=== PATIENT | male | born 1960 | race Two or more races ===

== ENCOUNTER 2021-08-15 11:20 | Inpatient (IN) | payer MEDICARE, OTHER ==
[~2021-08-15] VITALS: Ht 177.8 cm; Wt 93.2 kg
[2021-08-15] MEDS ORDERED: FUROSEMIDE 40 MG/4 ML VIAL IV ONE ×2 (11:30→16:30)
[2021-08-15] MEDS ORDERED: CLINDAMYCIN 600MG IV 50 ML IV ONE ×2 (11:30→16:30)
[2021-08-15 12:14] LABS: Basophils # (auto) 0.1 10 ^3/uL (0-0.2); Basophils % (auto) 0.8 % (0.0-2.0); Eosinophils # (auto) 0.1 10 ^3/uL (0-0.8); Eosinophils % (auto) 1.7 % (0.0-7.0); Hematocrit 34.2 % (41.0-53.0); Hemoglobin 11.4 g/dL (13.5-17.5); Lymphocytes # (auto) 0.8 10 ^3/uL (0.4-5.4); Lymphocytes % (auto) 12.6 % (10.0-50.0); Mean Corpuscular Hemoglobin 31.2 pg (28.0-32.0); Mean Corpuscular Hgb Conc. 33.4 g/dL (32.0-36.0); Mean Corpuscular Volume 93.4 fL (80.0-100.0); Monocytes # (auto) 0.8 10 ^3/uL (0-1.3); Monocytes % (auto) 12.3 % (0.0-12.0); Neutrophils # (auto) 4.9 10 ^3/uL (1.6-8.6); Neutrophils % (auto) 72.6 % (37.0-80.0); Red Blood Cells 3.67 10^6/uL (4.5-5.90); Red Cell Distribution Width 18.3 % (11.8-14.3); White Blood Cell 6.7 10^3/uL (4.4-10.8)
[2021-08-15 12:28] LABS: Chloride 105 mmol/L (98-107); Potassium 3.6 mmol/L (3.5-5.1); Sodium 135 mmol/L (136-145)
[2021-08-15 12:44] LABS: Alanine Aminotransferase 17 U/L (16-61); Alkaline Phosphatase 117 U/L (45-117); Anion Gap 11 (5-15); Aspartate Aminotransferase 19 U/L (15-37); BUN/Creatinine Ratio 22.2; Bilirubin, Total 1.1 mg/dL (0.2-1.0); Blood Urea Nitrogen 30 mg/dL (7-18); Calcium 8.2 mg/dL (8.5-10.1); Carbon Dioxide 19 mmol/L (21-32); GFR African American 69 mL/min; GFR Non-African American 57 mL/min; Glucose 114 mg/dL (74-106); Magnesium 2.5 mg/dL (1.6-2.6); Total Protein 7.9 g/dL (6.4-8.2)
[2021-08-15] MEDS ORDERED: NITROGLYCERIN 0.4 MG SL TAB SL PRN ×2 (15:00→16:30)
[2021-08-15] MEDS ORDERED: MORPHINE SULFATE INJECTION 2 MG/ML SYRG IV PRN ×2 (15:00→16:30)
[2021-08-15] MEDS ORDERED: SACU1TAB PO (16:01)
[2021-08-15] MEDS ORDERED: DICL1GEL50 TOP (16:01)
[2021-08-15] MEDS ORDERED: MELO1TAB56 PO (16:01)
[2021-08-15] MEDS ORDERED: LISI2.5T47 PO (16:01)
[2021-08-15] MEDS ORDERED: FURO40TA4 PO (16:01)
[2021-08-15] MEDS ORDERED: ACETAMINOPHEN 325 MG TAB PO PRN (16:30)
[2021-08-15] MEDS ORDERED: HYDROcodone-ACET 5/325MG TAB PO PRN (16:30)
[2021-08-15] MEDS ORDERED: LORazepam 0.5 MG TAB PO PRN (16:30)
[2021-08-15] MEDS ORDERED: METOCLOPRAMIDE HCL 5MG/ml INJ 2ml VIAL IV PRN (16:30)
[2021-08-15] MEDS ORDERED: ALUM & MAG HYDROX-SIMETH LIQ(MAALOX) 30 ML PO PRN (16:30)
[2021-08-15] MEDS ORDERED: ENOXAPARIN SOD 40 MG/0.4 ML SYRINGE SC ONE (16:30)
[2021-08-15] MEDS ORDERED: SODIUM CHLORIDE 0.9% 1,000 ML IV SCH (16:30)
[2021-08-15] MEDS ORDERED: cefTRIAXone 1GM/50ML D5W 50 ML IV ONE (16:30)
[2021-08-15] MEDS ORDERED: FAMOTIDINE (10MG/ML) 2ML VL IV ONE (16:30)
[2021-08-15] MEDS ORDERED: DOCUSATE SOD 100 MG CAP PO PRN (16:30)
[2021-08-15 16:34] LABS: Urine Bacteria NONE SEEN /hpf (None Seen); Urine Blood Negative /uL (Negative); Urine Specific Gravity 1.021 (1.001-1.035); Urine WBC <1 /hpf (0 - 3)
[2021-08-15] MEDS ORDERED: IPRATROPIUM BROM 0.5 MG/2.5ML INH SOL NEB ONE (16:45)
[2021-08-15 18:08] LABS: Amphetamine Screen, Urine NEGATIVE (NEGATIVE); Barbiturate Scree,Urine NEGATIVE (NEGATIVE); Benzodiazephine Screen, Urine NEGATIVE (NEGATIVE); Cannabinoid Screen, Urine NEGATIVE (NEGATIVE); Cocaine Screen, Urine NEGATIVE (NEGATIVE); Opiate Scree,Urine NEGATIVE (NEGATIVE); Phencyclidine Screen, Urine NEGATIVE (NEGATIVE)
[2021-08-15 18:24] LABS: Cholesterol 119 mg/dL (< 200); Magnesium 2.5 mg/dL (1.6-2.6)
[2021-08-15 18:26] LABS: INR 1.13 (0.9-1.15); Partial Thromboplastin Time 28.3 sec (23.6-33.0)
[2021-08-15 18:29] LABS: HDL Cholesterol 53 mg/dL (40-59); LDL Cholesterol 59 mg/dL (< 100); Phosphorus 2.9 mg/dL (2.5-4.90); Triglycerides 61 mg/dL (< 150)
[2021-08-15] MEDS: MORPHINE SULFATE INJECTION 2 MG/ML SYRG IV PRN (20:34)
[2021-08-15] MEDS ORDERED: IPRATROPIUM BROM 0.5 MG/2.5ML INH SOL NEB PRN (22:00)
[2021-08-15] MEDS ORDERED: IPRATROPIUM BROM 0.5 MG/2.5ML INH SOL NEB SCH (22:00)
[2021-08-15] MEDS: CLINDAMYCIN 600MG IV 50 ML IV SCH (22:30)
[2021-08-15] MEDS: ATORVASTATIN 20 MG TAB PO SCH (22:50)
[2021-08-15] MEDS: POTASSIUM CHL 20 Meq TABLET PO SCH (22:50)
[2021-08-15] MEDS: CARVEDILOL 3.125 MG TAB PO SCH (22:50)
[2021-08-15] MEDS: SACUBITRIL-VALSARTAN 24mg/26mg TAB PO SCH (23:30)
[2021-08-16 01:20] VITALS: BP 110/71
[2021-08-16] MEDS: MORPHINE SULFATE INJECTION 2 MG/ML SYRG IV PRN ×2 (02:13→03:13)
[2021-08-16] MEDS ORDERED: PNEUMOCOCCAL VACC POLYS 25 MCG/0.5 ML VIAL IM ONE (04:15)
[2021-08-16] MEDS ORDERED: INFLUENZA QUAD 2020-2021 0.5 ML SYRG IM ONE (04:15)
[2021-08-16] MEDS ORDERED: LORA0.5T20 PO (04:18)
[2021-08-16] MEDS ORDERED: IBUP800T27 PO (04:18)
[2021-08-16 05:00] VITALS: BP 103/60
[2021-08-16 06:06] LABS: Cholesterol 100 mg/dL (< 200); HDL Cholesterol 42 mg/dL (40-59); LDL Cholesterol 52 mg/dL (< 100); Triglycerides 47 mg/dL (< 150)
[2021-08-16] MEDS: CLINDAMYCIN 600MG IV 50 ML IV SCH ×3 (06:14→22:43)
[2021-08-16] MEDS: FUROSEMIDE 40 MG/4 ML VIAL IV SCH ×2 (06:14→18:00)
[2021-08-16 09:00] VITALS: BP 101/58
[2021-08-16] MEDS: cefTRIAXone 1GM/50ML D5W 50 ML IV SCH (09:10)
[2021-08-16] MEDS: POTASSIUM CHL 20 Meq TABLET PO SCH ×2 (09:11→22:41)
[2021-08-16] MEDS: SACUBITRIL-VALSARTAN 24mg/26mg TAB PO SCH ×2 (09:11→22:41)
[2021-08-16] MEDS: FAMOTIDINE (10MG/ML) 2ML VL IV SCH ×2 (09:11→22:43)
[2021-08-16] MEDS: ASPirin 81 mg TAB PO SCH (09:11)
[2021-08-16] MEDS: CARVEDILOL 3.125 MG TAB PO SCH ×2 (09:15→22:42)
[2021-08-16] MEDS ORDERED: ENOXAPARIN SOD 40 MG/0.4 ML SYRINGE SC SCH (10:00)
[2021-08-16] MEDS ORDERED: chlordiazePOXIDE HCL 25 MG CAP PO PRN (11:30)
[2021-08-16] MEDS ORDERED: IOHEXOL 350 MG/ML 100ML IJ ONE (11:53)
[2021-08-16 13:00] VITALS: BP 102/64
[2021-08-16] MEDS: FOLIC ACID 1 MG, MULTIPLE VITAMIN 10 ML, MAGNESIUM SULF SDV 50% 8 MEQ, THIAMINE INJ 100... INJ SCH ×5 (13:33)
[2021-08-16 17:00] VITALS: BP 94/60
[2021-08-16] MEDS ORDERED: IPRATROPIUM BROM 0.5 MG/2.5ML INH SOL NEB PRN (17:30)
[2021-08-16 21:53] VITALS: BP 106/67
[2021-08-16] MEDS: ATORVASTATIN 20 MG TAB PO SCH (22:40)
[2021-08-17 05:00] VITALS: BP 91/50
[2021-08-17] MEDS: FUROSEMIDE 40 MG/4 ML VIAL IV SCH ×3 (06:00→21:30)
[2021-08-17] MEDS: CLINDAMYCIN 600MG IV 50 ML IV SCH ×3 (07:14→21:27)
[2021-08-17] MEDS: cefTRIAXone 1GM/50ML D5W 50 ML IV SCH (08:42)
[2021-08-17 09:00] VITALS: BP 90/61
[2021-08-17] MEDS: ASPirin 81 mg TAB PO SCH (09:32)
[2021-08-17] MEDS: FAMOTIDINE (10MG/ML) 2ML VL IV SCH (09:32)
[2021-08-17] MEDS: POTASSIUM CHL 20 Meq TABLET PO SCH ×2 (09:33→21:29)
[2021-08-17] MEDS: SACUBITRIL-VALSARTAN 24mg/26mg TAB PO SCH ×2 (09:33→21:28)
[2021-08-17] MEDS: CARVEDILOL 3.125 MG TAB PO SCH ×2 (09:34→21:30)
[2021-08-17] MEDS: ENOXAPARIN SOD 120 MG/0.8 ML SYRINGE SC SCH ×2 (09:40→21:28)
[2021-08-17 13:00] VITALS: BP_SYST 101; BP_SYST 95; BP_DIAS 60; BP_DIAS 64
[2021-08-17] MEDS: FOLIC ACID 1 MG, MULTIPLE VITAMIN 10 ML, MAGNESIUM SULF SDV 50% 8 MEQ, THIAMINE INJ 100... INJ SCH ×5 (13:23)
[2021-08-17 16:38] VITALS: BP 113/74
[2021-08-17] MEDS: ATORVASTATIN 20 MG TAB PO SCH (21:28)
[2021-08-17 22:00] VITALS: BP 117/75
[2021-08-18 05:00] VITALS: BP 95/53
[2021-08-18] MEDS: CLINDAMYCIN 600MG IV 50 ML IV SCH ×3 (05:33→21:33)
[2021-08-18] MEDS: FUROSEMIDE 40 MG/4 ML VIAL IV SCH ×2 (05:33→18:50)
[2021-08-18] MEDS: CARVEDILOL 3.125 MG TAB PO SCH ×2 (09:24→21:35)
[2021-08-18] MEDS: cefTRIAXone 1GM/50ML D5W 50 ML IV SCH (09:24)
[2021-08-18] MEDS: SACUBITRIL-VALSARTAN 24mg/26mg TAB PO SCH ×2 (09:26→21:33)
[2021-08-18] MEDS: POTASSIUM CHL 20 Meq TABLET PO SCH ×2 (09:26→21:33)
[2021-08-18] MEDS: ENOXAPARIN SOD 120 MG/0.8 ML SYRINGE SC SCH (09:27)
[2021-08-18] MEDS: ASPirin 81 mg TAB PO SCH (09:27)
[2021-08-18] MEDS: FOLIC ACID 1 MG, MULTIPLE VITAMIN 10 ML, MAGNESIUM SULF SDV 50% 8 MEQ, THIAMINE INJ 100... INJ SCH ×5 (11:54)
[2021-08-18 13:00] VITALS: BP 110/75
[2021-08-18 17:00] VITALS: BP 114/70
[2021-08-18] MEDS: ATORVASTATIN 20 MG TAB PO SCH (21:33)
[2021-08-18] MEDS: APIXABAN 5 MG TAB PO SCH (21:34)
[2021-08-18 22:13] VITALS: BP 117/75
[2021-08-19] VITALS (7 sets, daily range): BP systolic 90–108; BP diastolic 56–74
[2021-08-19] MEDS: CLINDAMYCIN 600MG IV 50 ML IV SCH ×3 (06:11→21:14)
[2021-08-19] MEDS: FUROSEMIDE 40 MG/4 ML VIAL IV SCH ×2 (06:11→17:51)
[2021-08-19] MEDS: cefTRIAXone 1GM/50ML D5W 50 ML IV SCH (09:06)
[2021-08-19] MEDS: ASPirin 81 mg TAB PO SCH (10:20)
[2021-08-19] MEDS: APIXABAN 5 MG TAB PO SCH ×2 (10:21→21:14)
[2021-08-19] MEDS: CARVEDILOL 3.125 MG TAB PO SCH ×2 (10:21→22:43)
[2021-08-19] MEDS: POTASSIUM CHL 20 Meq TABLET PO SCH ×2 (10:21→21:13)
[2021-08-19] MEDS: SACUBITRIL-VALSARTAN 24mg/26mg TAB PO SCH ×2 (10:21→21:13)
[2021-08-19] MEDS: FOLIC ACID 1 MG, MULTIPLE VITAMIN 10 ML, MAGNESIUM SULF SDV 50% 8 MEQ, THIAMINE INJ 100... INJ SCH ×5 (12:26)
[2021-08-19] MEDS: ATORVASTATIN 20 MG TAB PO SCH (21:14)
[2021-08-20 05:00] VITALS: BP 105/61
[2021-08-20] MEDS: CLINDAMYCIN 600MG IV 50 ML IV SCH ×3 (06:13→21:16)
[2021-08-20] MEDS: FUROSEMIDE 40 MG/4 ML VIAL IV SCH ×2 (06:13→17:46)
[2021-08-20 08:15] VITALS: BP 108/66
[2021-08-20 09:00] VITALS: BP 108/66
[2021-08-20] MEDS: ASPirin 81 mg TAB PO SCH (09:07)
[2021-08-20] MEDS: cefTRIAXone 1GM/50ML D5W 50 ML IV SCH (09:07)
[2021-08-20] MEDS: APIXABAN 5 MG TAB PO SCH ×2 (09:08→21:17)
[2021-08-20] MEDS: SACUBITRIL-VALSARTAN 24mg/26mg TAB PO SCH ×2 (09:08→21:18)
[2021-08-20] MEDS: CARVEDILOL 3.125 MG TAB PO SCH ×2 (09:09→21:41)
[2021-08-20] MEDS: POTASSIUM CHL 20 Meq TABLET PO SCH ×2 (09:10→21:18)
[2021-08-20] MEDS: FOLIC ACID 1 MG, MULTIPLE VITAMIN 10 ML, MAGNESIUM SULF SDV 50% 8 MEQ, THIAMINE INJ 100... INJ SCH ×5 (10:43)
[2021-08-20 12:30] VITALS: BP 86/60
[2021-08-20 17:00] VITALS: BP 95/61
[2021-08-20] MEDS: ATORVASTATIN 20 MG TAB PO SCH (21:16)
[2021-08-20 22:00] VITALS: BP 97/61
[2021-08-21] MEDS: FUROSEMIDE 40 MG/4 ML VIAL IV SCH (05:14)
[2021-08-21] MEDS: CLINDAMYCIN 600MG IV 50 ML IV SCH ×2 (05:15→14:00)
[2021-08-21 05:35] VITALS: BP 95/60
[2021-08-21] MEDS: cefTRIAXone 1GM/50ML D5W 50 ML IV SCH (08:50)
[2021-08-21] MEDS: CARVEDILOL 3.125 MG TAB PO SCH ×2 (08:52→21:31)
[2021-08-21] MEDS: APIXABAN 5 MG TAB PO SCH ×2 (08:52→21:30)
[2021-08-21] MEDS: ASPirin 81 mg TAB PO SCH (08:52)
[2021-08-21] MEDS: SACUBITRIL-VALSARTAN 24mg/26mg TAB PO SCH ×2 (08:53→21:51)
[2021-08-21 09:17] VITALS: BP 106/67
[2021-08-21 11:47] VITALS: BP 101/67
[2021-08-21] MEDS: FOLIC ACID 1 MG, MULTIPLE VITAMIN 10 ML, MAGNESIUM SULF SDV 50% 8 MEQ, THIAMINE INJ 100... INJ SCH ×5 (12:00)
[2021-08-21 17:00] VITALS: BP 108/65
[2021-08-21] MEDS ORDERED: FUROSEMIDE 40 MG TAB ONE (17:24)
[2021-08-21] MEDS: FUROSEMIDE 20 MG TAB PO SCH (18:04)
[2021-08-21] MEDS: CLINDAMYCIN HCL 150 MG CAP PO SCH (21:30)
[2021-08-21] MEDS: ATORVASTATIN 20 MG TAB PO SCH (21:30)
[2021-08-21 22:00] VITALS: BP 96/54
[2021-08-22 05:00] VITALS: BP 101/70
[2021-08-22] MEDS: CLINDAMYCIN HCL 150 MG CAP PO SCH (05:20)
[2021-08-22] MEDS: FUROSEMIDE 20 MG TAB PO SCH (05:20)
[2021-08-25] MEDS ORDERED: APIXABAN 5 MG TAB PO SCH (22:00)
== END 2021-08-22 08:50 | disposition home or self-care (01) | DRG 175 ==
LOC: ER 11:20 → EDBD 11:20 → TELE 14:55 → TELE-WESTW 23:56 → TELE 08-18 14:52 → TELE-WESTW 08-18 14:59
PROVIDERS: ADMIT Hospitalist; ATTEND Family Medicine
DX: I26.99 Other pulmonary embolism without acute cor pulmonale (principal); I50.23 Acute on chronic systolic (congestive) heart failure; I13.0 Hypertensive heart and chronic kidney disease with heart failure and stage 1 through stage 4 chronic kidney disease, or unspecified chronic kidney disease; L03.115 Cellulitis of right lower limb; N17.9 Acute kidney failure, unspecified; L03.116 Cellulitis of left lower limb; I42.9 Cardiomyopathy, unspecified; N18.31 Chronic kidney disease, stage 3a; D64.9 Anemia, unspecified; E88.09 Other disorders of plasma-protein metabolism, not elsewhere classified; Z20.822 Contact with and (suspected) exposure to COVID-19; E66.01 Morbid (severe) obesity due to excess calories; E78.5 Hyperlipidemia, unspecified; F17.210 Nicotine dependence, cigarettes, uncomplicated; J44.9 Chronic obstructive pulmonary disease, unspecified; I73.9 Peripheral vascular disease, unspecified; I70.8 Atherosclerosis of other arteries; F10.129 Alcohol abuse with intoxication, unspecified; R73.03 Prediabetes; I08.1 Rheumatic disorders of both mitral and tricuspid valves; M16.11 Unilateral primary osteoarthritis, right hip; Z79.899 Other long term (current) drug therapy; Z83.3 Family history of diabetes mellitus; Z85.828 Personal history of other malignant neoplasm of skin; Z92.3 Personal history of irradiation; Z68.32 Body mass index [BMI] 32.0-32.9, adult; Z85.72 Personal history of non-Hodgkin lymphomas; Z59.0 Homelessness; Z71.6 Tobacco abuse counseling; Z71.41 Alcohol abuse counseling and surveillance of alcoholic; Z28.21 Immunization not carried out because of patient refusal; Z91.19 Patient's noncompliance with other medical treatment and regimen
CPT/HCPCS: 36415; 71045; 71275; 80053; 80061; 80307; 81001; 83036; 83735; 83880; 84100; 84443; 84484; 85025; 85379; 85610; 85730; 87040; 87081; 87086; 87426; 93005; 93306; 93925; 93970; 96365; 96366; 96368; 96372; 96375; G0378; J0696; J3490

== ENCOUNTER 2021-10-09 08:46 | Inpatient (IN) | payer MEDICARE, MEDICAID ==
[~2021-10-09] VITALS: Ht 177.8 cm; Wt 106.5 kg
[~2021-10-09 08:46] MED LIST: DICL1GEL50 TOP; FURO40TA4 PO; IBUP800T27 PO; LISI2.5T47 PO; LORA0.5T20 PO; MELO1TAB56 PO; SACU1TAB PO
[2021-10-09] MEDS ORDERED: FUROSEMIDE 40 MG/4 ML VIAL IV ONE (10:30)
[2021-10-09 10:58] LABS: Urine WBC None Seen /hpf (0 - 3)
[2021-10-09 11:18] LABS: Urine Bacteria NONE SEEN /hpf (None Seen); Urine Blood Negative /uL (Negative); Urine Specific Gravity 1.003 (1.001-1.035)
[2021-10-09 11:47] LABS: Basophils # (auto) 0.1 10 ^3/uL (0-0.2); Basophils % (auto) 0.9 % (0.0-2.0); Eosinophils # (auto) 0.1 10 ^3/uL (0-0.8); Eosinophils % (auto) 1.2 % (0.0-7.0); Hematocrit 36.3 % (41.0-53.0); Hemoglobin 12.4 g/dL (13.5-17.5); Lymphocytes # (auto) 0.8 10 ^3/uL (0.4-5.4); Lymphocytes % (auto) 12.6 % (10.0-50.0); Mean Corpuscular Hemoglobin 32.2 pg (28.0-32.0); Mean Corpuscular Hgb Conc. 34.2 g/dL (32.0-36.0); Mean Corpuscular Volume 94.2 fL (80.0-100.0); Monocytes # (auto) 0.7 10 ^3/uL (0-1.3); Monocytes % (auto) 11.9 % (0.0-12.0); Neutrophils # (auto) 4.5 10 ^3/uL (1.6-8.6); Neutrophils % (auto) 73.4 % (37.0-80.0); Nucleated Red Blood Cells % 0.1 %; Red Blood Cells 3.86 10^6/uL (4.5-5.90); Red Cell Distribution Width 19.6 % (11.8-14.3); White Blood Cell 6.2 10^3/uL (4.4-10.8)
[2021-10-09 11:55] LABS: Albumin 2.9 g/dL (3.4-5.0); Calcium 8.2 mg/dL (8.5-10.1); INR 1.3 (0.9-1.15); Partial Thromboplastin Time 30.5 sec (23.6-33.0); Potassium 3.8 mmol/L (3.5-5.1)
[2021-10-09 12:10] LABS: BUN/Creatinine Ratio 17.3; Bilirubin, Total 1.1 mg/dL (0.2-1.0); Total Protein 7.8 g/dL (6.4-8.2)
[2021-10-09] MEDS ORDERED: MORPHINE SULFATE INJECTION 2 MG/ML SYRG IV PRN ×3 (13:15→16:00)
[2021-10-09] MEDS ORDERED: NITROGLYCERIN 0.4 MG SL TAB SL PRN ×2 (13:15→16:00)
[2021-10-09] MEDS ORDERED: [UNRECOGNIZED DRUG - CODE] PO (15:43)
[2021-10-09] MEDS ORDERED: FOLI1TAB6 PO (15:43)
[2021-10-09] MEDS ORDERED: CLIN-203 PO (15:43)
[2021-10-09] MEDS ORDERED: POTA-264 PO (15:43)
[2021-10-09] MEDS ORDERED: APIX5TAB PO (15:43)
[2021-10-09] MEDS ORDERED: CARV3.1240 PO (15:43)
[2021-10-09] MEDS ORDERED: POTA-180 PO (15:55)
[2021-10-09] MEDS ORDERED: LORA1TAB23 PO (15:55)
[2021-10-09] MEDS ORDERED: DOXYCYCLINE 100MG/250ML 250 ML IV SCH (16:00)
[2021-10-09] MEDS ORDERED: ALUM & MAG HYDROX-SIMETH LIQ(MAALOX) 30 ML PO PRN (16:00)
[2021-10-09] MEDS ORDERED: ACETAMINOPHEN 325 MG TAB PO PRN (16:00)
[2021-10-09] MEDS ORDERED: DOXYCYCLINE 100MG/250ML 250 ML IV ONE (16:00)
[2021-10-09] MEDS ORDERED: HYDROcodone-ACET 5/325MG TAB PO PRN (16:00)
[2021-10-09] MEDS ORDERED: LORazepam 0.5 MG TAB PO PRN (16:00)
[2021-10-09] MEDS ORDERED: FUROSEMIDE 100 MG/10ML VIAL IV ONE (16:00)
[2021-10-09] MEDS ORDERED: DOCUSATE SOD 100 MG CAP PO PRN (16:00)
[2021-10-09] MEDS ORDERED: ONDANSETRON HCL 4 MG/2 ML VIAL IV PRN (16:00)
[2021-10-09 16:51] VITALS: BP 117/73
[2021-10-09 17:30] LABS: Amphetamine Screen, Urine NEGATIVE (NEGATIVE); Barbiturate Scree,Urine NEGATIVE (NEGATIVE); Benzodiazephine Screen, Urine NEGATIVE (NEGATIVE); Cannabinoid Screen, Urine NEGATIVE (NEGATIVE); Cocaine Screen, Urine NEGATIVE (NEGATIVE); Opiate Scree,Urine NEGATIVE (NEGATIVE); Phencyclidine Screen, Urine NEGATIVE (NEGATIVE)
[2021-10-09 17:31] LABS: Alcohol, Urine < 3.0 mg/dL (0-10)
[2021-10-09 22:00] VITALS: BP 122/67
[2021-10-09] MEDS: ATORVASTATIN 20 MG TAB PO SCH (22:21)
[2021-10-09] MEDS: CARVEDILOL 3.125 MG TAB PO SCH (22:21)
[2021-10-09] MEDS: APIXABAN 5 MG TAB PO SCH (22:21)
[2021-10-10] MEDS: DOXYCYCLINE 100MG/250ML 250 ML IV SCH ×2 (03:37→17:49)
[2021-10-10 06:00] VITALS: BP 120/71
[2021-10-10] MEDS: FUROSEMIDE 40 MG/4 ML VIAL IV SCH ×2 (06:45→17:51)
[2021-10-10 07:06] LABS: Magnesium 1.8 mg/dL (1.6-2.6); Potassium 3.4 mmol/L (3.5-5.1)
[2021-10-10 07:07] LABS: Basophils # (auto) 0 10 ^3/uL (0-0.2); Basophils % (auto) 0.6 % (0.0-2.0); Eosinophils # (auto) 0.1 10 ^3/uL (0-0.8); Eosinophils % (auto) 1.3 % (0.0-7.0); Hematocrit 31.9 % (41.0-53.0); Hemoglobin 10.8 g/dL (13.5-17.5); Lymphocytes # (auto) 0.7 10 ^3/uL (0.4-5.4); Lymphocytes % (auto) 11.5 % (10.0-50.0); Mean Corpuscular Hemoglobin 31.9 pg (28.0-32.0); Mean Corpuscular Hgb Conc. 33.8 g/dL (32.0-36.0); Mean Corpuscular Volume 94.4 fL (80.0-100.0); Monocytes # (auto) 0.8 10 ^3/uL (0-1.3); Monocytes % (auto) 14.5 % (0.0-12.0); Neutrophils # (auto) 4.1 10 ^3/uL (1.6-8.6); Neutrophils % (auto) 72.1 % (37.0-80.0); Nucleated Red Blood Cells % 0.1 %; Red Blood Cells 3.38 10^6/uL (4.5-5.90); Red Cell Distribution Width 19.6 % (11.8-14.3); White Blood Cell 5.7 10^3/uL (4.4-10.8)
[2021-10-10 07:22] LABS: Albumin 2.7 g/dL (3.4-5.0); BUN/Creatinine Ratio 16.5; Bilirubin, Total 0.8 mg/dL (0.2-1.0); Calcium 7.8 mg/dL (8.5-10.1); Phosphorus 3.4 mg/dL (2.5-4.90); Total Protein 6.5 g/dL (6.4-8.2)
[2021-10-10 07:29] LABS: INR 1.37 (0.9-1.15); Partial Thromboplastin Time 33.8 sec (23.6-33.0)
[2021-10-10 09:00] VITALS: BP 114/72
[2021-10-10] MEDS: ASPirin 81 mg TAB PO SCH (10:06)
[2021-10-10] MEDS: CARVEDILOL 3.125 MG TAB PO SCH ×2 (10:07→22:00)
[2021-10-10] MEDS: LISINOPRIL 5 MG TAB PO SCH (10:08)
[2021-10-10] MEDS: APIXABAN 5 MG TAB PO SCH ×2 (10:08→22:02)
[2021-10-10 17:24] VITALS: BP 97/67
[2021-10-10 22:00] VITALS: BP 97/65
[2021-10-10] MEDS: ATORVASTATIN 20 MG TAB PO SCH (22:02)
[2021-10-11] MEDS: DOXYCYCLINE 100MG/250ML 250 ML IV SCH (04:04)
[2021-10-11 05:00] VITALS: BP 102/54
[2021-10-11] MEDS: FUROSEMIDE 40 MG/4 ML VIAL IV SCH ×2 (05:40→18:20)
[2021-10-11 06:05] LABS: Potassium 3.6 mmol/L (3.5-5.1)
[2021-10-11 06:09] LABS: BUN/Creatinine Ratio 18.9; Calcium 7.6 mg/dL (8.5-10.1)
[2021-10-11 08:00] VITALS: BP 111/73
[2021-10-11 09:00] VITALS: BP 111/73
[2021-10-11] MEDS ORDERED: LISI2.5T47 PO (12:29)
[2021-10-11] MEDS ORDERED: SACU1TAB PO (12:29)
[2021-10-11] MEDS: ASPirin 81 mg TAB PO SCH (12:31)
[2021-10-11] MEDS: CARVEDILOL 3.125 MG TAB PO SCH ×2 (12:32→22:36)
[2021-10-11] MEDS: LISINOPRIL 5 MG TAB PO SCH (12:33)
[2021-10-11] MEDS: APIXABAN 5 MG TAB PO SCH ×2 (12:33→22:00)
[2021-10-11 13:00] VITALS: BP 103/52
[2021-10-11 17:00] VITALS: BP 111/63
[2021-10-11 22:00] VITALS: BP 101/60
[2021-10-11] MEDS: DOXYCYCLINE 100 MG TAB/CAP PO SCH (22:00)
[2021-10-11] MEDS: ATORVASTATIN 20 MG TAB PO SCH (22:00)
[2021-10-12 05:00] VITALS: BP 122/79
[2021-10-12] MEDS: FUROSEMIDE 40 MG/4 ML VIAL IV SCH (06:00)
[2021-10-12 09:00] VITALS: BP 111/65
[2021-10-12] MEDS: APIXABAN 5 MG TAB PO SCH (09:01)
[2021-10-12] MEDS: CARVEDILOL 3.125 MG TAB PO SCH (09:01)
[2021-10-12] MEDS: DOXYCYCLINE 100 MG TAB/CAP PO SCH (09:01)
[2021-10-12] MEDS: LISINOPRIL 5 MG TAB PO SCH (09:02)
[2021-10-12] MEDS: ASPirin 81 mg TAB PO SCH (09:03)
[2021-10-12 12:43] VITALS: BP 123/58
[2021-10-12 12:48] VITALS: BP 116/72
== END 2021-10-12 14:30 | disposition home or self-care (01) | DRG 291 ==
LOC: ER 08:46 → TELE 13:14 → TELE-WESTW 15:53
PROVIDERS: ADMIT Hospitalist; ATTEND Internal Medicine
DX: I11.0 Hypertensive heart disease with heart failure (principal); I26.99 Other pulmonary embolism without acute cor pulmonale; I50.23 Acute on chronic systolic (congestive) heart failure; L03.115 Cellulitis of right lower limb; L03.116 Cellulitis of left lower limb; I27.82 Chronic pulmonary embolism; I42.0 Dilated cardiomyopathy; K21.9 Gastro-esophageal reflux disease without esophagitis; I25.5 Ischemic cardiomyopathy; E66.01 Morbid (severe) obesity due to excess calories; D64.9 Anemia, unspecified; E88.09 Other disorders of plasma-protein metabolism, not elsewhere classified; I50.82 Biventricular heart failure; F10.10 Alcohol abuse, uncomplicated; E78.5 Hyperlipidemia, unspecified; Z20.822 Contact with and (suspected) exposure to COVID-19; I73.9 Peripheral vascular disease, unspecified; F17.210 Nicotine dependence, cigarettes, uncomplicated; M19.90 Unspecified osteoarthritis, unspecified site; Z59.00 Homelessness unspecified; Z79.01 Long term (current) use of anticoagulants; Z79.899 Other long term (current) drug therapy; Z85.72 Personal history of non-Hodgkin lymphomas; Z85.828 Personal history of other malignant neoplasm of skin; Z91.19 Patient's noncompliance with other medical treatment and regimen; Z91.14 Patient's other noncompliance with medication regimen
CPT/HCPCS: 36415; 71045; 80048; 80053; 80307; 81001; 82306; 83036; 83735; 83880; 84100; 84443; 84484; 84550; 85025; 85610; 85730; 87040; 87086; 87426; 93005; 96365; 96375; 96376; 99291; G0378; J3490